=== PATIENT | female | born 1945 | race Caucasian/White ===

== ENCOUNTER → 2016-07-29 | Outpatient (CLI) | payer MEDICARE ==
[~2016-07-29] MED LIST: ASPI-515 PO; FLAX100016 PO; HYDR25TA6 PO; LEVO75TA5 PO; NABU500T PO; OMEP-110 PO
== END | disposition home or self-care (01) ==
LOC: CFH 15:47
PROVIDERS: ATTEND Physician Assistant Surgical
DX: M51.36 Other intervertebral disc degeneration, lumbar region (principal); M43.17 Spondylolisthesis, lumbosacral region; M48.06 Spinal stenosis, lumbar region; M53.3 Sacrococcygeal disorders, not elsewhere classified; M41.86 Other forms of scoliosis, lumbar region; I70.0 Atherosclerosis of aorta
CPT/HCPCS: 72110

== ENCOUNTER 2017-05-19 10:05 | Day surgery (SDC) | payer OTHER ==
[2017-05-16 10:03] LABS: ALANINE AMINOTRANSFERASE 18 U/L (12-78); ALBUMIN 3.8 g/dL (3.4-5.0); ANION GAP 8 mmol/L (5-15); CALCIUM 9.1 mg/dL (8.5-10.1); CHLORIDE 99 mmol/L (98-107); CREATININE 0.63 mg/dL (0.55-1.02)
[2017-05-16 10:05] LABS: ALKALINE PHOSPHATASE 120 U/L (45-117); BILIRUBIN,TOTAL 0.5 mg/dL (0.2-1.0); TOTAL PROTEIN 8.3 g/dL (6.4-8.2)
[~2017-05-19] VITALS: Ht 149.9 cm; Wt 54.2 kg
[~2017-05-19 10:05] MED LIST changes: +ASPI-496 PO; +ATOR20TA9 PO; +CA C1TAB59 PO; +CHOL100012 PO; +MELO15TA24 PO; +OMEP20TA62 PO; +[UNRECOGNIZED DRUG - OTHER] PO
[2017-05-19] MEDS ORDERED: LACTATED RINGERS 1,000 ML IV SCH (10:56)
[2017-05-19 11:32] VITALS: BP 157/90
[2017-05-19] MEDS ORDERED: PROPOFOL 50 ML ONE (11:51)
[2017-05-19] MEDS ORDERED: MIDAZOLAM 1 MG/ML, 2ML ONE (11:53)
[2017-05-19] MEDS ORDERED: FENTANYL PF 100 MCG/2ML ONE (11:53)
[2017-05-19] MEDS ORDERED: PROPOFOL 10 MG/ML, 20ML ONE (11:55)
[2017-05-19] MEDS ORDERED: LIDOCAINE-MPF 2% ,5ML ONE (11:55)
[2017-05-19] MEDS ORDERED: LABETALOL 5MG/ML, 20ML IV PRN (12:00)
[2017-05-19] MEDS ORDERED: ONDANSETRON 2MG/ML, 2ML IVPush PRN (12:00)
[2017-05-19] MEDS ORDERED: MEPERIDINE/PF 25MG/0.5ML IVPush PRN (12:00)
[2017-05-19] MEDS ORDERED: morphine SULFATE 10 MG/ML, 1ML IV PRN (12:00)
[2017-05-19] MEDS ORDERED: hydrALAzine 20 MG/ML, 1ML IV PRN (12:00)
[2017-05-19] MEDS ORDERED: ACETAMINOPHEN 325 MG TABLET PO PRN (12:00)
[2017-05-19] MEDS ORDERED: PROMETHAZINE 12.5 MG SUPP PR PRN (12:00)
[2017-05-19] MEDS ORDERED: OXYcodone 5 MG/5 ML ORAL.SOL UDC PO PRN (12:00)
[2017-05-19] MEDS ORDERED: FENTANYL PF 100 MCG/2ML IV PRN (12:00)
== END 2017-05-19 15:05 ==
LOC: OUT 10:05
PROVIDERS: ATTEND Internal Medicine Geriatric Medicine
DX: K22.710 Barrett's esophagus with low grade dysplasia (principal); K21.9 Gastro-esophageal reflux disease without esophagitis; I10 Essential (primary) hypertension; E03.9 Hypothyroidism, unspecified
CPT/HCPCS: 36415; 43270; 80053; 93005; J2250; J2704; J3010; J3490; J7120

== ENCOUNTER → 2017-07-08 | Outpatient (CLI) | payer OTHER | LOC: STAR 12:56 | PROVIDERS: ATTEND Internal Medicine Geriatric Medicine | DX: Z02.9 Encounter for administrative examinations, unspecified (principal) ==

== ENCOUNTER 2017-07-15 09:19 | Day surgery (SDC) | payer OTHER ==
[~2017-07-15] VITALS: Ht 144.8 cm; Wt 53.6 kg
[2017-07-15] MEDS ORDERED: MIDAZOLAM 1 MG/ML, 2ML ONE (09:33)
[2017-07-15] MEDS ORDERED: FENTANYL PF 100 MCG/2ML ONE (09:33)
[2017-07-15] MEDS ORDERED: PROPOFOL 10 MG/ML, 20ML ONE ×2 (09:34)
[2017-07-15] MEDS ORDERED: LACTATED RINGERS 1,000 ML IV SCH (09:49)
[2017-07-15 09:52] VITALS: BP 157/86
[2017-07-15] MEDS ORDERED: KETAMINE 100 MG/ML, 5ML ONE (10:12)
[2017-07-15] MEDS ORDERED: hydrALAzine 20 MG/ML, 1ML IV PRN (11:00)
[2017-07-15] MEDS ORDERED: MEPERIDINE/PF 25MG/0.5ML IVPush PRN (11:00)
[2017-07-15] MEDS ORDERED: PROMETHAZINE 25 MG/ML, 1ML IV PRN (11:00)
[2017-07-15] MEDS ORDERED: OXYcodone 5 MG/5 ML ORAL.SOL UDC PO PRN (11:00)
[2017-07-15] MEDS ORDERED: FENTANYL PF 100 MCG/2ML IV PRN (11:00)
[2017-07-15] MEDS ORDERED: LABETALOL 5MG/ML, 20ML IV PRN (11:00)
[2017-07-15] MEDS ORDERED: ACETAMINOPHEN 325 MG TABLET PO PRN (11:00)
[2017-07-15] MEDS ORDERED: MORPHINE SULFATE 4 MG/ML, 1ML IVPush PRN (11:00)
== END 2017-07-15 12:25 ==
LOC: OUT 09:19
PROVIDERS: ATTEND Internal Medicine Geriatric Medicine
DX: K22.711 Barrett's esophagus with high grade dysplasia (principal); K21.9 Gastro-esophageal reflux disease without esophagitis; E03.9 Hypothyroidism, unspecified; I10 Essential (primary) hypertension
CPT/HCPCS: 43270; J2250; J2704; J3010; J7120